=== PATIENT | male | born 1960 | race Caucasian/White ===

== ENCOUNTER 2016-12-01 14:02 | Observation (INO) | payer OTHER ==
[2016-12-01 14:10] VITALS: BMI 24.8
[2016-12-01] MEDS ORDERED: ASPIRIN 325 MG TABLET PO ONE (15:39)
--- NOTE | 2016-12-01 15:39 | PDOC ---
History of Present Illness - General Chief Complaint: Chest Pain Stated Complaint: CHEST TIGHTNESS, BACK PAIN Time Seen by Provider: 12/01/16 14:53 History Source: Patient - History of Present Illness Presenting Symptoms: Chest Pain Timing/Duration: reports: constant Severity/Quality: reports: sharp Past History - Past Medical History Allergies/Adverse Reactions: Allergies Allergy/AdvReac Type Severity Reaction Status Date / Time Penicillins Allergy Intermediate Rash Verified 12/01/16 14:10 Home Medications: Ambulatory Orders Glyburide [Micronase] 2.5 mg PO DAILY 08/31/12 Anemia: No Asthma: No Cancer: No Cardiac Disorders: Yes (3 STENTS) CVA: No COPD: No CHF: No Dementia: No Diabetes: Yes (type II) GI Disorders: No Disorders: No HTN: Yes (BORDERLINE) Hypercholesterolemia: No Liver Disease: No Seizures: No Thyroid Disease: No - Surgical History Abdominal Surgery: No Appendectomy: No Cardiac Surgery: Yes (3 STENTS) Cholecystectomy: No Lung Surgery: No Neurologic Surgery: No Orthopedic Surgery: Yes - Immunization History Td Vaccination: Yes - Psycho/Social/Smoking Cessation Hx Anxiety: No Suicidal Ideation: No Smoking Status: Yes Smoking History: Current every day smoker Have you smoked in the past 12 months: Yes Number of Cigarettes Smoked Daily: 10 Information on smoking cessation initiated: No Hx Alcohol Use: No Drug/Substance Use Hx: No Substance Use Type: None Hx Substance Use Treatment: No Cardiac Specific PMH - Complaint Specific PMHX Pacemaker: No Review of Systems - Review of Systems Constitutional: No: Chills, Fever Respiratory: No: Cough, Shortness of Breath Cardiac (ROS): Yes: Chest Pain. No: Palpitations *Physical Exam - Vital Signs Last Vital Signs Temp Pulse Resp BP Pulse Ox 97.8 F 72 18 120/65 98 12/01/16 14:04 12/01/16 14:04 12/01/16 14:04 12/01/16 14:04 12/01/16 15:56 - Physical Exam General Appearance: Yes: Appropriately Dressed. No: Apparent Distress HEENT: positive: Normal Voice Neck: positive: Supple Respiratory/Chest: positive: Lungs Clear, Normal Breath Sounds. negative: Respiratory Distress Cardiovascular: positive: Regular Rate, S1, S2 Gastrointestinal/Abdominal: positive: Soft. negative: Tender Extremity: positive: Normal Inspection Integumentary: positive: Dry, Warm Neurologic: positive: Fully Oriented, Alert, Normal Mood/Affect Heart Score/ECG Review - History History: Highly suspicious - Electrocardiogram EKG: Normal - Age Age: 45-65 - Risk Factors Risk Factors Heart Score: Yes Hx Diabetes, Yes Smoking History Based on the list above the patient has:: >/=3 risk factors or Hx atherosclerotic disease - Troponin Troponin: </= normal limit - Score Heart Score - Total: 5 - ECG Intrepretation Comment:: 12/01/16 15:40 Twelve-lead EKG was performed and reviewed by me. There is normal sinus rhythm with a normal rate. The axis is normal. The intervals are normal. There are no ST or T wave abnormalities. Impression: Normal twelve-lead EKG ED Treatment Course - LABORATORY CBC & Chemistry Diagram: 12/01/16 15:40 12/01/16 15:40 - ADDITIONAL ORDERS Additional order review: Laboratory Results 12/01/16 15:40 Sodium 142 Potassium 4.1 D Chloride 104 Carbon Dioxide 25 Anion Gap 13 BUN 19 H Creatinine 0.7 D Creat Clearance w eGFR > 60 Random Glucose 213 H Calcium 8.8 Total Bilirubin 0.4 D AST 16 D ALT 21 D Alkaline Phosphatase 104 D Creatine Kinase 79 Troponin I 0.02 Total Protein 7.1 Albumin 3.7 12/01/16 15:40 RBC 4.83 MCV 87.2 MCHC 33.2 RDW 13.2 MPV 8.0 Neutrophils % 63.4 Lymphocytes % 24.6 D Monocytes % 5.8 Eosinophils % 2.9 Basophils % 3.3 H D - RADIOLOGY Radiology Studies Ordered: Category Date Time Status CHEST X-RAY PORTABLE* [RAD] Stat Radiology 12/01/16 14:54 Completed - Medications Given in the ED: ED Medications Discontinued Medications Generic Name Dose Route Start Last Admin Trade Name Freq PRN Reason Stop Dose Admin Aspirin 325 mg 12/01/16 15:39 12/01/16 15:45 Asa - PO 12/01/16 15:40 325 mg ONCE ONE Administration Medical Decision Making - Medical Decision Making 12/01/16 15:32 56-year-old male, current smoker, [id number] diabetes, CAD with multiple stents, FL, chronic STOKES, p/w chest pain. Patient states while out walking today developed sudden onset tight midsternal chest pain radiating to back that lasts for several minutes. States he became "clammy" during episode. Denies dizziness, nausea, vomiting. 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 States pain since improved. As per patient, pain different from pain prior to his stents See exam CP Significant cardiac RFs including multiple stents and ?stable angina F/u with Dr Sundar Oliva in ED w/ unremarkable exam R/o ACS, unlikely dissection or PE -asa -ekg -labs -d/w cards -anticipate admission 12/01/16 15:41 12/01/16 16:30 Case d/w Dr Oliva and pt admitted to OBs given unremarkable labs and ekg *DC/Admit/Observation/Transfer Diagnosis at time of Disposition: Chest pain Qualifiers: Chest pain type: unspecified Qualified Code(s): R07.9 - Chest pain, unspecified - Discharge Dispostion Condition at time of disposition: Fair Admit: Yes Decision to Admit order Date/Time: Decision to Admit Order Category Date Time Status Decision to Admit to Hospital Routine Admission 12/01/16 16:29 Active
[2016-12-01] MEDS ORDERED: ASPIRIN 325 MG TABLET ONE (15:46)
[2016-12-01 15:51] LABS: BASOPHIL 3.3 % (0-2.0); EOSINOPHIL 2.9 % (0-4.5); MCHC 33.2 g/dl (32.0-35.9); MEAN CELL VOLUME 87.2 fl (80-96); NEUTROPHILS 63.4 % (42.8-82.8); PLATELET COUNT 181 K/MM3 (134-434); RDW 13.2 % (11.9-15.9); WHITE BLOOD COUNT 9.2 K/mm3 (4.0-10.0)
[2016-12-01 16:16] LABS: ALBUMIN 3.7 g/dl (3.4-5.0); ANION GAP 13 (8-16); BILIRUBIN,TOTAL 0.4 mg/dL (0.2-1.0); CALCIUM 8.8 mg/dL (8.5-10.1); CO2 25 mmol/L (21-32); CREATININE 0.7 mg/dL (0.7-1.3); GLUCOSE,RANDOM 213 mg/dL (74-106); SGOT/AST 16 U/L (15-37); SGPT/ALT 21 U/L (12-78); TOT PROT 7.1 g/dl (6.4-8.2)
[2016-12-01 16:19] LABS: ALK PHOS 104 U/L (45-117); TROPONIN I 0.02 ng/ml (0.00-0.05)
[2016-12-01] MEDS ORDERED: ACETAMINOPHEN 325 MG TABLET (FP) PO PRN (16:32)
[2016-12-01] MEDS ORDERED: ONDANSETRON 4 MG/2 ML VIAL IVPB PRN (16:32)
[2016-12-01] MEDS ORDERED: morphine CARPU-JECT 2 MG/1 ML DISP.SYRIN IVPUSH PRN (16:32)
--- NOTE | 2016-12-01 16:32 | HP ---
Admitting History and Physical - Primary Care Physician PCP: Diego Singleton - Admission Chief Complaint: chest pain History of Present Illness: Mr Dee is a pleasant 56 year old male who comes in with complaints of chest pain. He says he has a chronic history of dyspnea on exertion that is unchanged , he walks about 15-30 feet before he gets short of breath. He says today he was walking and became short of breath, but he also had chest pressure that was retrosternal that radiated to the back. He says it was minimal and it resolved with rest. He had some diaphoresis with this but it was minimal. He denies fevers, chills, lightheadedness, dizziness, coughing, abdominal pain, nausea, vomiting, diarrhea, constipation, difficulty or pain on urination, or swelling. Currently he says he is feeling well. History Source: Patient Limitations to Obtaining History: No Limitations - Past Medical History Cardiovascular: Yes: CAD, HTN Gastrointestinal: Yes: GERD Endocrine: Yes: Diabetes Mellitus - Past Surgical History Past Surgical History: Yes: Stent - Smoking History Smoking history: Current every day smoker Have you smoked in the past 12 months: Yes Aproximately how many cigarettes per day: 10 - Alcohol/Substance Use Hx Alcohol Use: No - Social History Usual Living Arrangement: Yes: Alone ADL: Independent History of Recent Travel: No Home Medications - Allergies Allergies/Adverse Reactions: Allergies Allergy/AdvReac Type Severity Reaction Status Date / Time Penicillins Allergy Intermediate Rash Verified 12/01/16 14:10 - Home Medications Home Medications: Ambulatory Orders Glyburide [Micronase] 2.5 mg PO DAILY 08/31/12 Family Disease History - Family Disease History Family Disease History: Heart Disease: Father Review of Systems Findings/Remarks: Full review of systems obtained, as per HPI and otherwise negative. Physical Examination Vital Signs: Vital Signs Temperature 97.8 F 12/01/16 14:04 Pulse Rate 72 12/01/16 14:04 Respiratory Rate 18 12/01/16 14:04 Blood Pressure 120/65 12/01/16 14:04 O2 Sat by Pulse Oximetry (%) 98 12/01/16 15:56 Constitutional: Yes: Well Nourished, No Distress, Calm Eyes: Yes: Conjunctiva Clear, EOM Intact HENT: Yes: Atraumatic, Normocephalic Cardiovascular: Yes: Regular Rate and Rhythm. No: Gallop, Murmur, Rub Respiratory: Yes: Regular, CTA Bilaterally. No: Rales, Rhonchi, Wheezes Gastrointestinal: Yes: Normal Bowel Sounds, Soft. No: Distention, Tenderness Extremities: Yes: WNL Edema: No Labs: CBC, BMP 12/01/16 15:40 12/01/16 15:40 Imaging - Results Chest X-ray: Report Reviewed, Image Reviewed EKG: Image Reviewed Problem List - Problems (1) Chest pain Assessment/Plan: -admit to telemetry under observation -patient says he stopped taking all his cardiac medications because of concerns about them interacting with supplements -stopped taking aspirin prior to procedure, forgot to restart -not taking plavix or lipitor -restart aspirin -cardiac enzymes x3, 1st set negative -consult cardiology, ? if needs stress test Code(s): R07.9 - CHEST PAIN, UNSPECIFIED Qualifiers: Chest pain type: unspecified Qualified Code(s): R07.9 - Chest pain, unspecified (2) Diabetes Assessment/Plan: -diabetic diet -continue micronase -SSI -check HgbA1c Code(s): E11.9 - TYPE 2 DIABETES MELLITUS WITHOUT COMPLICATIONS (3) Tobacco abuse Assessment/Plan: -offered patch, patient declined -counselled on cessation Code(s): Z72.0 - TOBACCO USE
--- NOTE | 2016-12-01 18:00 | CON.CARD ---
Cardiology Consult (text) - Consultation Consultation Note: CC: CP 56 yo smoker with h/o CAD s/p Inf STEMI s/p PCI's (mildly reduced EF at that time --> normalized), HTN, HL, NIDDM, OA, BPH presents with chest pain. Stable limiting STOKES walking 2 blocks or up a flight of stairs. Today with episode of mild chest tightness associated with brief diaphoresis while walking. Has had rare intermittent tightness like this before, but never with diaphoresis. Also, this time the discomfort improved but didn't totally resolve for about one hour. Had stress in August for similar symptoms. Different from prior anginal pain which radiated into jaw and back. denies orthopnea, pnd, le edema, palps, bleeding, claudication or transient neurologic sx's. He denies fevers, chills, lightheadedness, dizziness, coughing, abdominal pain, nausea, vomiting, diarrhea, constipation, difficulty or pain on urination, or swelling. pmhx/pshx: per hpi social hx: + tobacco, no etoh or illicits fam hx: no hx of cardiac disease ros: per hpi Ambulatory Orders Glyburide [Micronase] 2.5 mg PO DAILY 08/31/12 Per office notes: ~ Aspirin 81 MG TABS, once daily 90 days, 3 refills ~ Atorvastatin Calcium 80 MG Tablet once a day, 90 days, 3 refills ~ GlyBURIDE-MetFORMIN 5-500 MG Tablet twice a day . 2 tabs BID, 180 days, 0 refills ~ Plavix 75 MG Tablet once daily, 90 days, 3 refills Current Medications Acetaminophen (Tylenol -) 650 mg PO Q4H PRN PRN Reason: FEVER OR PAIN Aspirin (Asa -) 81 mg PO DAILY [facility] Docusate Sodium (Colace -) 100 mg PO BID [facility] Glyburide (Diabeta -) 2.5 mg PO ACBK [facility] Insulin Aspart (Novolog Vial Sliding Scale -) 1 vial SQ ACHS [facility] PRN Reason: Protocol Morphine Sulfate (Morphine Injection -) 1 mg IVPUSH Q4H PRN PRN Reason: PAIN Ondansetron HCl (Zofran Injection) 4 mg IVPB Q6H PRN PRN Reason: NAUSEA Vital Signs - 24 hr 12/01/16 12/01/16 12/01/16 14:04 15:56 17:20 Temperature 97.8 F 98.2 F Pulse Rate 72 Pulse Rate [ 87 Left Radial] Respiratory 18 20 Rate Blood Pressure 120/65 Blood Pressure 150/80 [Left Arm] O2 Sat by Pulse 99 98 98 Oximetry (%) Intake & Output 11/29/16 11/30/16 12/01/16 12/02/16 07:59 07:59 07:59 07:59 Weight 199 lb NAD, calm jvd flat, neck supple ctab, nl effort rrr nl s1, s2 no m/r/g + bs soft nt nd ext without e/c/c no jaundice, diaphoresis aaox3 CBC, BMP 12/01/16 15:40 12/01/16 15:40 Laboratory Tests 12/01/16 15:40 Total Bilirubin 0.4 D AST 16 D ALT 21 D Alkaline Phosphatase 104 D Creatine Kinase 79 Troponin I 0.02 Albumin 3.7 EKG: NSR, LAD, pac's, inferior q's, non-specific t wave ab. similar to priors. CXR: no acute pathology stress echo 08/2016: 7 METS. (suboptimal, PHR not achieved). prior inf/ inferolateral scar with small area of terrance-infarct ischemia in apical inf wall. [facility] 09/2014: patent pRCA and pLAD stents; subtotal occl D1 jailed by stent; Xience ROMEO to 70-80% LPL1 [facility] 08/2014 (staged PCI): patent pRCA stent; 70-80% pLAD--promus ROMEO; 70-80% D1- -? no intervention; 70-80% LPL1; mild dz pLCX and Ramus; EDP 14, nl EF [facility] 06/2014 (IW STEMI): occluded pRCA--ROMEO x 2 (xience, premier); residual 80% prox to mid LAD; 80% D1; 60% mCFX; 60% dCFX; 60% OM1; EF 45%. 56 yo smoker with h/o CAD s/p Inf STEMI s/p PCI's (mildly reduced EF at that time --> normalized), HTN, HL, NIDDM, OA, BPH presents with chest pain. CAD/CP with residual jailed D1 - Recent stress test for similar sx's without ischemia, but target HR not achieved. Current EKG without acute ischemic changes. Would con't LISA. If CE 's remain negative and no CP recurrence, ok to have further work up (possible nuclear stress test) as outpatient. - con't DAPT (would add plavix). Resume high dose atorvastatin. Resume lisinopril 5 mg/day (has self discontinued in past). Consider low dose beta neto if there is bp room. - telemetry monitoring. HTN - currently slightly elevated, adding lisinopril as mentioned above. HL - statin + tobacco - smoking cessation counseling.
[2016-12-01] MEDS ORDERED: LISINOPRIL 5 MG TABLET (FP) PO SCH (18:15)
[2016-12-01] MEDS ORDERED: ATORVASTATIN CA 80 MG TABLET (FP) PO SCH (22:00)
[2016-12-01] MEDS: DOCUSATE SODIUM 100 MG CAPSULE (FP) PO SCH (23:12)
[2016-12-01] MEDS: INSULIN SLIDING SCALE (NOVOLOG) 1 VIAL SQ SCH (23:12)
--- NOTE | 2016-12-02 00:21 | EKG ---
Test Reason : Blood Pressure : / mmHG Vent. Rate : 079 BPM Atrial Rate : 079 BPM P-R Int : 148 ms QRS Dur : 094 ms QT Int : 370 ms P-R-T Axes : 044 -51 037 degrees QTc Int : 424 ms SINUS RHYTHM WITH PREMATURE ATRIAL COMPLEXES LEFT AXIS DEVIATION INFERIOR INFARCT (CITED ON OR BEFORE 05-JUL-2014) ABNORMAL ECG WHEN COMPARED WITH ECG OF 05-JUL-2014 02:22, PREMATURE ATRIAL COMPLEXES ARE NOW PRESENT VENT. RATE HAS INCREASED BY 28 BPM Confirmed by JO SCHMIDT MD ([id number]) on 12/02/2016 12:20:44 AM Referred By: Confirmed By:JO SCHMIDT MD
[2016-12-02] MEDS: INSULIN SLIDING SCALE (NOVOLOG) 1 VIAL SQ SCH (06:27)
[2016-12-02] MEDS ORDERED: glyBURIDE 2.5 MG TABLET (FP) PO SCH (07:00)
[2016-12-02 08:13] LABS: BASOPHIL 0.8 % (0-2.0); MCHC 33.3 g/dl (32.0-35.9); MEAN CELL VOLUME 87.1 fl (80-96); MEAN PLT VOLUME 7.9 fl (7.5-11.1); NEUTROPHILS 69.4 % (42.8-82.8); PLATELET COUNT 156 K/MM3 (134-434); RDW 13.4 % (11.9-15.9); WHITE BLOOD COUNT 9.7 K/mm3 (4.0-10.0)
[2016-12-02 08:28] LABS: CALCIUM 8.8 mg/dL (8.5-10.1); MAGNESIUM 2.1 mg/dL (1.8-2.4)
[2016-12-02 08:36] LABS: CREATININE 0.7 mg/dL (0.7-1.3); PHOSPHOROUS 3.5 mg/dL (2.5-4.9); TROPONIN I 0.02 ng/ml (0.00-0.05)
--- NOTE | 2016-12-02 09:07 | PN ---
Progress Note (short form) - Note Progress Note: CC: CP S: No further cp. no palps, dizziness, sob. Ambulating around halls. Current Medications Acetaminophen (Tylenol -) 650 mg PO Q4H PRN PRN Reason: FEVER OR PAIN Aspirin (Asa -) 81 mg PO DAILY [facility] Atorvastatin Calcium (Lipitor -) 80 mg PO HS [facility] Last Admin: 12/01/16 23:12 Dose: 80 mg Clopidogrel Bisulfate (Plavix -) 75 mg PO DAILY [facility] Docusate Sodium (Colace -) 100 mg PO BID [facility] Last Admin: 12/01/16 23:12 Dose: 100 mg Glyburide (Diabeta -) 2.5 mg PO ACBK [facility] Last Admin: 12/02/16 06:28 Dose: 2.5 mg Insulin Aspart (Novolog Vial Sliding Scale -) 1 vial SQ ACHS [facility] PRN Reason: Protocol Last Admin: 12/02/16 06:27 Dose: Not Given Lisinopril (Prinivil) 5 mg PO DAILY [facility] Last Admin: 12/01/16 23:12 Dose: 5 mg Morphine Sulfate (Morphine Injection -) 1 mg IVPUSH Q4H PRN PRN Reason: PAIN Ondansetron HCl (Zofran Injection) 4 mg IVPB Q6H PRN PRN Reason: NAUSEA Vital Signs - 24 hr 12/01/16 12/01/16 12/01/16 14:04 15:56 17:20 Temperature 97.8 F 98.2 F Pulse Rate 72 Pulse Rate [ 87 Left Radial] Respiratory 18 20 Rate Blood Pressure 120/65 Blood Pressure 150/80 [Left Arm] O2 Sat by Pulse 99 98 98 Oximetry (%) 12/01/16 12/01/16 12/01/16 18:05 18:27 19:57 Temperature 98.1 F 98.1 F 97.6 F Pulse Rate 89 68 Pulse Rate [ 82 Left Radial] Respiratory 20 20 18 Rate Blood Pressure 134/68 109/70 Blood Pressure 140/80 [Left Arm] O2 Sat by Pulse 99 99 Oximetry (%) 12/01/16 12/02/16 12/02/16 21:00 02:00 03:14 Temperature 98.9 F 97.6 F Pulse Rate 90 95 H Pulse Rate [ Left Radial] Respiratory 20 20 Rate Blood Pressure 147/87 121/63 Blood Pressure [Left Arm] O2 Sat by Pulse 98 Oximetry (%) 12/02/16 06:39 Temperature 98.2 F Pulse Rate 61 Pulse Rate [ Left Radial] Respiratory 20 Rate Blood Pressure 106/56 Blood Pressure [Left Arm] O2 Sat by Pulse Oximetry (%) Intake & Output 11/30/16 12/01/16 12/02/16 12/03/16 07:59 07:59 07:59 07:59 Intake Total 300 Balance 300 Weight 199 lb NAD, calm jvd flat, neck supple ctab, nl effort rrr nl s1, s2 no m/r/g + bs soft nt nd ext without e/c/c no jaundice, diaphoresis aaox3 CBC, BMP 12/02/16 07:40 12/02/16 07:40 Laboratory Tests 12/01/16 12/02/16 12/02/16 15:40 02:05 07:40 Hemoglobin A1c % Magnesium 2.1 Troponin I 0.02 < 0.02 0.02 12/02/16 07:40 Hemoglobin A1c % 8.8 H Magnesium Troponin I EKG: NSR, LAD, pac's, inferior q's, non-specific t wave ab. similar to priors. tele: SR, SB. rare pac CXR: no acute pathology stress echo 08/2016: 7 METS. (suboptimal, PHR not achieved). prior inf/ inferolateral scar with small area of terrance-infarct ischemia in apical inf wall. [facility] 09/2014: patent pRCA and pLAD stents; subtotal occl D1 jailed by stent; Xience ROMEO to 70-80% LPL1 [facility] 08/2014 (staged PCI): patent pRCA stent; 70-80% pLAD--promus ROMEO; 70-80% D1- -? no intervention; 70-80% LPL1; mild dz pLCX and Ramus; EDP 14, nl EF [facility] 06/2014 (IW STEMI): occluded pRCA--ROMEO x 2 (xience, premier); residual 80% prox to mid LAD; 80% D1; 60% mCFX; 60% dCFX; 60% OM1; EF 45%. 56 yo smoker with h/o CAD s/p Inf STEMI s/p PCI's (mildly reduced EF at that time --> normalized), HTN, HL, NIDDM, OA, BPH presents with chest pain. CAD/CP with residual jailed D1 - Recent stress test for similar sx's without ischemia, but target HR not achieved. Current EKG without acute ischemic changes. CE's neg x 3. No recurrence of discomfort. OK to d/c from CV perspective with close f/u with Dr. Kwok for repeat outpatient stress testing (likely nuclear stress). - con't DAPT, high dose atorvastatin, lisinopril (has self discontinued in past). - telemetry monitoring benign. HTN - labile. Now running low. Will decrease lisinopril to 2.5 mg/day - eating breakfast sandwich that friend brought him. counseled on low sodium diet. HL - statin + tobacco - smoking cessation counseling. Stable, OK to d/c telemetery and discharge from CV perspective.
[2016-12-02] MEDS ORDERED: ASPIRIN 81 MG CHEWABLE TABLETS PO SCH (10:00)
[2016-12-02] MEDS ORDERED: LISINOPRIL 5 MG TABLET (FP) PO SCH (10:00)
[2016-12-02] MEDS ORDERED: CLOPIDOGREL BISULFATE 75 MG TABLET (FP) PO SCH (10:00)
[2016-12-02] MEDS: DOCUSATE SODIUM 100 MG CAPSULE (FP) PO SCH (10:15)
--- NOTE | 2016-12-02 11:02 | DS ---
Physical Examination Vital Signs: Vital Signs Temperature 98.2 F 12/02/16 06:39 Pulse Rate 61 12/02/16 06:39 Respiratory Rate 20 12/02/16 06:39 Blood Pressure 106/56 12/02/16 06:39 O2 Sat by Pulse Oximetry (%) 98 12/01/16 21:00 Constitutional: Yes: Well Nourished, No Distress, Calm Cardiovascular: Yes: Regular Rate and Rhythm. No: Gallop, Murmur, Rub Respiratory: Yes: Regular, CTA Bilaterally. No: Rales, Rhonchi, Wheezes Gastrointestinal: Yes: Normal Bowel Sounds, Soft. No: Distention, Tenderness Extremities: Yes: WNL Edema: No Labs: CBC, BMP 12/02/16 07:40 12/02/16 07:40 Discharge Summary Reason For Visit: CHEST PAIN Current Active Problems Chest pain (Acute) Diabetes (Acute) Tobacco abuse (Acute) Hospital Course: (1) Chest pain Code(s): R07.9 - CHEST PAIN, UNSPECIFIED Qualifiers: Chest pain type: unspecified Qualified Code(s): R07.9 - Chest pain, unspecified (2) Diabetes Code(s): E11.9 - TYPE 2 DIABETES MELLITUS WITHOUT COMPLICATIONS (3) Tobacco abuse Code(s): Z72.0 - TOBACCO USE Mr Dee is a 56 year old male who comes in with chest tightness. He was admitted to telemetry under observation. He had cardiac enzymes x3 which were negative. He was seen by cardiology and felt to be safe for discharge home with close outpatient follow up. He was encouraged to take all his medications as prescribed. He is also encouraged to stop smoking. Condition: Good - Instructions Diet, Activity, Other Instructions: diabetic diet. stop smoking. Referrals: Diego Singleton MD [Staff Physician] - Theron Kwok MD [Staff Physician] - Disposition: HOME - Home Medications Comprehensive Discharge Medication List: Ambulatory Orders Glyburide [Micronase] 2.5 mg PO DAILY 08/31/12 Aspirin [ASA -] 81 mg PO DAILY tab.chew 12/02/16 Atorvastatin Ca [Lipitor] 80 mg PO HS #30 tablet 12/02/16 Clopidogrel Bisulfate [Plavix -] 75 mg PO DAILY #30 tablet 12/02/16 Lisinopril [Prinivil] 2.5 mg PO DAILY #30 tablet 12/02/16
[2016-12-02 11:22] VITALS: BP 102/51; PULSE 64; TEMP 98.9
== END 2016-12-02 11:13 | disposition home or self-care (01) ==
LOC: JER 14:02 → JERBED 16:29 → UNDOADMOB 17:01 → JERBED 17:01 → J4W 18:18
PROVIDERS: ADMIT Internal Medicine; ATTEND Internal Medicine
DX: R07.89 Other chest pain (principal); E11.9 Type 2 diabetes mellitus without complications; I10 Essential (primary) hypertension; F17.210 Nicotine dependence, cigarettes, uncomplicated; I25.10 Atherosclerotic heart disease of native coronary artery without angina pectoris; K21.9 Gastro-esophageal reflux disease without esophagitis; I25.2 Old myocardial infarction; N40.0 Benign prostatic hyperplasia without lower urinary tract symptoms; M19.90 Unspecified osteoarthritis, unspecified site; Z95.5 Presence of coronary angioplasty implant and graft; Z71.6 Tobacco abuse counseling
CPT/HCPCS: 36415; 71010-TC; 80048; 80053; 82550; 83036; 83735; 84100; 84484; 85025; 93005; 93010; 99285-25; G0378

== ENCOUNTER 2017-02-27 17:18 | Emergency (ER) | payer OTHER ==
[2017-02-27 17:26] VITALS: BP 138/69; PULSE 73; TEMP 97.6; BMI 24.7
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
[2017-02-27] MEDS ORDERED: ACETAMINOPHEN 500 MG TABLET (FP) PO ONE (20:12)
[2017-02-27] MEDS ORDERED: ACETAMINOPHEN 500 MG TABLET (FP) ONE (20:16)
== END 2017-02-27 20:20 | disposition home or self-care (01) ==
LOC: JERFT 17:18
PROC: 2W3CXYZ Immobilization of Right Lower Arm using Other Device (ICD-10-PCS; principal; 2017-02-27)
DX: S39.012A Strain of muscle, fascia and tendon of lower back, initial encounter (principal); S63.501A Unspecified sprain of right wrist, initial encounter; M25.571 Pain in right ankle and joints of right foot; W10.8XXA Fall (on) (from) other stairs and steps, initial encounter; Y93.89 Activity, other specified; Y92.038 Other place in apartment as the place of occurrence of the external cause; Y99.8 Other external cause status; I25.10 Atherosclerotic heart disease of native coronary artery without angina pectoris; I10 Essential (primary) hypertension; Z95.5 Presence of coronary angioplasty implant and graft; Z87.891 Personal history of nicotine dependence; E11.9 Type 2 diabetes mellitus without complications; Z79.84 Long term (current) use of oral hypoglycemic drugs; N40.0 Benign prostatic hyperplasia without lower urinary tract symptoms; E78.5 Hyperlipidemia, unspecified; E78.00 Pure hypercholesterolemia, unspecified
CPT/HCPCS: 29260; 72100-TC; 73110-TC-RT; 73130-TC-RT; 73610-TC-RT; 73630-TC-RT; 99281-25

== ENCOUNTER 2017-03-01 07:17 | Emergency (ER) | payer OTHER ==
[2017-03-01] MEDS ORDERED: SODIUM CHLORIDE 1,000 ML IV ONE (07:43)
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
[2017-03-01] MEDS ORDERED: HEPARIN NA (PORCINE) 5,000 UNITS/ML 1ML VIAL ONE (08:00)
[2017-03-01] MEDS ORDERED: HEPARIN INFUSION - 500 ML IVPB ONE (08:01)
[2017-03-01] MEDS ORDERED: HEPARIN NA (PORCINE) 5,000 UNITS/ML 1ML VIAL IVPUSH ONE (08:02)
[2017-03-01 08:07] VITALS: BMI 25.7
[2017-03-01] MEDS ORDERED: HEPARIN INFUSION - 500 ML IVPB SCH (08:15)
[2017-03-01] MEDS ORDERED: ASPIRIN 300 MG SUPP.RECT RC ONE (08:16)
[2017-03-01 08:25] LABS: MCH 29.7 pg (25.7-33.7); MCHC 32.7 g/dl (32.0-35.9); MEAN CELL VOLUME 90.8 fl (80-96); MEAN PLT VOLUME 8.5 fl (7.5-11.1); PLATELET COUNT 191 K/MM3 (134-434); RDW 13.6 % (11.9-15.9); WHITE BLOOD COUNT 14.5 K/mm3 (4.0-10.0)
[2017-03-01] MEDS ORDERED: ASPIRIN 300 MG SUPP.RECT PR ONE (08:26)
[2017-03-01] MEDS ORDERED: TICAGRELOR 90 MG TABLET PO ONE ×2 (08:27→08:42)
[2017-03-01] MEDS ORDERED: PROPOFOL 100 ML IVPB SCH (08:30)
[2017-03-01] MEDS ORDERED: PROPOFOL 100 ML ONE (08:33)
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
[2017-03-01 08:43] LABS: ALBUMIN 3.3 g/dl (3.4-5.0); ANION GAP 14 (8-16); BILIRUBIN,TOTAL 0.5 mg/dL (0.2-1.0); CALCIUM 8.6 mg/dL (8.5-10.1); CO2 20 mmol/L (21-32); COCKROFT - GAULT 100.54; PHOSPHOROUS 5.2 mg/dL (2.5-4.9); SGPT/ALT 55 U/L (12-78); TOT PROT 6.6 g/dl (6.4-8.2)
[2017-03-01 08:44] LABS: URINE APPEARANCE CLOUDY; URINE BILIRUBIN NEGATIVE (NEGATIVE); URINE COLOR YELLOW; URINE GLUCOSE (UA) 3+ (NEGATIVE); URINE KETONE NEGATIVE (NEGATIVE); URINE LEUK ESTERASE NEGATIVE (NEGATIVE); URINE NITRITE NEGATIVE (NEGATIVE); URINE UROBILINOGEN NEGATIVE E.U./dl (0.2-1.0)
[2017-03-01 08:52] LABS: ALK PHOS 116 U/L (45-117); THYROID STIMULATING HORMONE 5.29 uIU/ml (0.358-3.74); TROPONIN I 0.04 ng/ml (0.00-0.05)
[2017-03-01 08:55] LABS: GLUCOSE,RANDOM 472 mg/dL (74-106); MAGNESIUM 3.2 mg/dL (1.8-2.4); SGOT/AST 91 U/L (15-37)
[2017-03-01 09:08] LABS: INR 1.06 (0.82-1.09); PROTHROMBIN TIME (PATIENT) 11.7 SEC (9.98-11.88)
[2017-03-01 09:20] LABS: URINE BLOOD 1+ (NEGATIVE); URINE PROTEIN 3+ (NEGATIVE)
[2017-03-01 09:54] VITALS: TEMP 97.3
[2017-03-01] MEDS ORDERED: ASPIRIN 300 MG SUPP.RECT PR SCH (10:00)
[2017-03-01 10:02] LABS: URINE HYALINE CAST 14 /lpf; URINE MUCUS RARE; URINE RBC 31 /hpf (0-3); URINE WBC 45 /hpf (3-5)
[2017-03-01 11:04] VITALS: BP 183/108; PULSE 100
[2017-03-01 13:06] LABS: METAMYELOCYTE 2 % (0-2); PLATELET ESTIMATE ADEQUATE (NORMAL)
--- NOTE | 2017-03-02 09:02 | EKG ---
Test Reason : Blood Pressure : / mmHG Vent. Rate : 105 BPM Atrial Rate : 105 BPM P-R Int : 216 ms QRS Dur : 118 ms QT Int : 332 ms P-R-T Axes : 072 -35 084 degrees QTc Int : 438 ms SINUS TACHYCARDIA WITH 1ST DEGREE A-V BLOCK LEFT AXIS DEVIATION INFERIOR INFARCT (CITED ON OR BEFORE 05-JUL-2014) ANTERIOR INFARCT , POSSIBLY ACUTE LATERAL INJURY PATTERN ACUTE [place] / STEMI ABNORMAL ECG WHEN COMPARED WITH ECG OF 01-DEC-2016 14:07, PREMATURE ATRIAL COMPLEXES ARE NO LONGER PRESENT WA INTERVAL HAS INCREASED QUESTIONABLE CHANGE IN QRS DURATION ANTERIOR INFARCT IS NOW PRESENT Confirmed by JOAQUIN ZHAO, ARON ([id number]) on 03/02/2017 9:02:14 AM Referred By: Confirmed By:ARON NUÑEZ MD
--- NOTE | 2017-03-02 15:54 | PDOC ---
Patient Follow-up (Call Back) - Post ED Follow - Up Condition at time of discharge: Critical Disposition at time of original discharge: TRANSFER ACUTE CARE/OTHER HOSP Reason for Call Back: Abnwl. Microbiology (b lood culture from anerobic bottle + for cocci in clusters, called [facility] to report this spoke with Lindsey Pichardo RN, to give this report, he is in [facility]. she will give information to his MD's)
--- NOTE | 2017-03-09 12:59 | EKG ---
Test Reason : Blood Pressure : / mmHG Vent. Rate : 102 BPM Atrial Rate : 102 BPM P-R Int : 186 ms QRS Dur : 122 ms QT Int : 344 ms P-R-T Axes : 074 -48 058 degrees QTc Int : 448 ms SINUS TACHYCARDIA LEFT AXIS DEVIATION INFERIOR INFARCT (CITED ON OR BEFORE 05-JUL-2014), AGE UNDETERMINED VS. RECIPROCAL CHANGES ANTERIOR INFARCT (CITED ON OR BEFORE 21-APR-2014), ACUTE LATERAL INJURY PATTERN ACUTE [place] / STEMI ABNORMAL ECG WHEN COMPARED WITH ECG OF 01-MAR-2017 07:58, EVOLVING MYOCARDIAL DAMAGE CLINICAL CORRELATION IS RECOMMENDED Confirmed by ROXANA ZHAO, JO ([id number]) on 03/09/2017 12:59:15 PM Referred By: Confirmed By:JO SCHMIDT MD
== END 2017-03-01 09:30 | disposition short-term general hospital (02) ==
LOC: JER 07:38
PROC: 3E0337Z Introduction of Electrolytic and Water Balance Substance into Peripheral Vein, Percutaneous Approach (ICD-10-PCS; principal; 2017-03-01)
PROC: 3E033GC Introduction of Other Therapeutic Substance into Peripheral Vein, Percutaneous Approach (ICD-10-PCS; 2017-03-01)
PROC: 3E033GC Introduction of Other Therapeutic Substance into Peripheral Vein, Percutaneous Approach (ICD-10-PCS; 2017-03-01)
PROC: 0BH17EZ Insertion of Endotracheal Airway into Trachea, Via Natural or Artificial Opening (ICD-10-PCS; 2017-03-01)
PROC: 5A12012 Performance of Cardiac Output, Single, Manual (ICD-10-PCS; 2017-03-01)
PROC: 3E033NZ Introduction of Analgesics, Hypnotics, Sedatives into Peripheral Vein, Percutaneous Approach (ICD-10-PCS; 2017-03-01)
PROC: 3E033GC Introduction of Other Therapeutic Substance into Peripheral Vein, Percutaneous Approach (ICD-10-PCS; 2017-03-01)
DX: I21.29 ST elevation (STEMI) myocardial infarction involving other sites (principal); I25.10 Atherosclerotic heart disease of native coronary artery without angina pectoris; I10 Essential (primary) hypertension; F17.210 Nicotine dependence, cigarettes, uncomplicated; Z95.5 Presence of coronary angioplasty implant and graft; E78.00 Pure hypercholesterolemia, unspecified; N40.0 Benign prostatic hyperplasia without lower urinary tract symptoms
CPT/HCPCS: 36415; 71010-TC; 80053; 80307; 81003; 81015; 82272; 82550; 82553; 83735; 84100; 84443; 84484; 85025; 85610; 86850; 86900; 86901; 87040; 87086; 87186; 93005; 93010; 99285-25; J1644